=== PATIENT | male | born 1980 ===

== ENCOUNTER 2022-08-23 18:27 | Inpatient (IN) | payer OTHER ==
[2022-08-23 20:24] VITALS: BMI 25.9
[2022-08-23] MEDS ORDERED: P-EPHED 60MG/TRIPROLIDI 2.5MG TABLET PO PRN (22:56)
[2022-08-23] MEDS ORDERED: ACETAMINOPHEN 325 MG TABLET (FP) PO PRN (22:56)
[2022-08-23] MEDS ORDERED: MAG HYDROX/AL HYDROX/SIMETH 30 ML UNIT-DOSE CUP PO PRN (22:56)
[2022-08-23] MEDS ORDERED: DICYCLOMINE HCL 10 MG CAPSULE PO PRN (22:56)
[2022-08-23] MEDS ORDERED: BENZOCAINE/MENTHOL (CHLORASEPTIC ) LOZENGE MM PRN (22:56)
[2022-08-23] MEDS ORDERED: BENZONATATE 200 MG CAPSULE PO PRN (22:56)
[2022-08-23] MEDS ORDERED: IBUPROFEN 400 MG TABLET (FP) PO PRN (22:56)
[2022-08-23] MEDS ORDERED: NICOTINE 10 MG CARTRIDGE (INHALER) IH PRN (22:56)
[2022-08-23] MEDS ORDERED: ONDANSETRON *ODT* 4 MG TABLET SL PRN (22:56)
[2022-08-23] MEDS ORDERED: BISMUTH SUBSALICYLATE 524 MG/30 ML PO PRN (22:56)
[2022-08-23] MEDS ORDERED: MAGNESIUM HYDROX 2400MG/30ML ORAL SUSPENSION 30 ML CUP PO PRN (22:56)
[2022-08-23] MEDS ORDERED: POLYETHYLENE GLYCOL (HEALTHYLAX) 3350 17 GM PACKET PO PRN (22:56)
[2022-08-23] MEDS ORDERED: guaiFENesin 600 MG TABLET.ER (FP) PO PRN (22:56)
[2022-08-23] MEDS ORDERED: LOPERAMIDE HCL 2 MG CAPSULE PO PRN (22:56)
[2022-08-23] MEDS ORDERED: NICOTINE POLACRILEX 2 MG GUM BUC PRN (22:56)
[2022-08-23] MEDS ORDERED: IBUPROFEN 600 MG TABLET (FP) PO PRN (22:56)
[2022-08-24] MEDS: METHOCARBAMOL 500 MG TABLET PO PRN ×2 (00:34→22:36)
[2022-08-24] MEDS: hydrOXYzine PAMOATE 25 MG CAPSULE (FP) PO PRN ×2 (00:35→22:36)
[2022-08-24] MEDS: MELATONIN 5 MG TABLETS PO PRN ×2 (00:37→22:36)
[2022-08-24] MEDS ORDERED: diazePAM 5 MG TABLET PO PRN (09:59)
[2022-08-24] MEDS: PRENATAL VITAMINS W/ FOLIC ACID TABLET (FP) PO SCH (10:34)
[2022-08-24] MEDS: diazePAM 5 MG TABLET PO SCH ×3 (10:35→22:37)
[2022-08-24 11:32] LABS: POTASSIUM 4.1 mmol/L (3.5-5.1)
[2022-08-24 11:35] LABS: HEMATOCRIT 43.5 % (35.4-49); MCH 28.5 pg (25.7-33.7); MCHC 34.4 g/dl (32.0-35.9); MEAN CELL VOLUME 82.8 fl (80-96); MEAN PLT VOLUME 10.1 fl (7.5-11.1); PLATELET COUNT 210 10^3/uL (134-434); RBC 5.26 M/mm3 (4.00-5.60); RDW 14.4 % (11.9-15.9)
[2022-08-24 11:38] LABS: CALCIUM 8.7 mg/dL (8.5-10.1)
[2022-08-24 11:39] LABS: ALBUMIN 3.4 g/dl (3.4-5.0); BLOOD UREA NITROGEN 18.1 mg/dL (7-18)
[2022-08-24 11:42] LABS: CREATININE 0.9 mg/dL (0.55-1.3)
[2022-08-24 11:44] LABS: BILIRUBIN,TOTAL 0.8 mg/dL (0.2-1); TOT PROT 6.3 g/dl (6.4-8.2)
[2022-08-24] MEDS: THIAMINE HCL 100 MG TABLET (FP) PO SCH (22:36)
[2022-08-25] MEDS: diazePAM 5 MG TABLET PO SCH ×4 (06:11→22:51)
[2022-08-25] MEDS: PRENATAL VITAMINS W/ FOLIC ACID TABLET (FP) PO SCH (10:25)
[2022-08-25] MEDS: ARIPiprazole 10 MG TABLET PO SCH (10:26)
[2022-08-25] MEDS: THIAMINE HCL 100 MG TABLET (FP) PO SCH (22:51)
[2022-08-25] MEDS: METHOCARBAMOL 500 MG TABLET PO PRN (22:51)
[2022-08-25] MEDS: MELATONIN 5 MG TABLETS PO PRN (22:51)
[2022-08-25] MEDS: hydrOXYzine PAMOATE 25 MG CAPSULE (FP) PO PRN (22:51)
[2022-08-26] MEDS: diazePAM 5 MG TABLET PO SCH ×3 (05:53→22:14)
[2022-08-26] MEDS: ARIPiprazole 10 MG TABLET PO SCH (10:35)
[2022-08-26] MEDS: PRENATAL VITAMINS W/ FOLIC ACID TABLET (FP) PO SCH (10:35)
[2022-08-26] MEDS: MELATONIN 5 MG TABLETS PO PRN (22:13)
[2022-08-26] MEDS: hydrOXYzine PAMOATE 25 MG CAPSULE (FP) PO PRN (22:13)
[2022-08-26] MEDS: THIAMINE HCL 100 MG TABLET (FP) PO SCH (22:14)
[2022-08-26] MEDS: METHOCARBAMOL 500 MG TABLET PO PRN (22:14)
[2022-08-27] MEDS ORDERED: diazePAM 5 MG TABLET PO SCH (06:00)
[2022-08-27 09:50] VITALS: BP 123/76; PULSE 64; RESP 16; TEMP 98
[2022-08-27] MEDS: PRENATAL VITAMINS W/ FOLIC ACID TABLET (FP) PO SCH (10:14)
[2022-08-27] MEDS: ARIPiprazole 10 MG TABLET PO SCH (10:15)
[2022-08-28] MEDS ORDERED: diazePAM 5 MG TABLET PO ONE (06:00)
== END 2022-08-27 11:46 | disposition home or self-care (01) | DRG 774 ==
LOC: YASAS 18:27 → Y3N 23:44
PROVIDERS: ADMIT Allergy & Immunology; ATTEND Surgery
PROC: HZ2ZZZZ Detoxification Services for Substance Abuse Treatment (ICD-10-PCS; principal; 2022-08-23)
DX: F10.230 Alcohol dependence with withdrawal, uncomplicated (principal); F14.20 Cocaine dependence, uncomplicated; F10.10 Alcohol abuse, uncomplicated; F12.20 Cannabis dependence, uncomplicated; F17.210 Nicotine dependence, cigarettes, uncomplicated; Z86.59 Personal history of other mental and behavioral disorders; Z91.199 Patient's noncompliance with other medical treatment and regimen due to unspecified reason
CPT/HCPCS: 36415; 80053; 85027; 86780; 87811; C9803-CS; U0003; U0005

== ENCOUNTER 2022-09-29 09:35 | Inpatient (IN) | payer OTHER ==
[2022-09-29 09:59] VITALS: BMI 28.6
[2022-09-29] MEDS ORDERED: MAG HYDROX/AL HYDROX/SIMETH 30 ML UNIT-DOSE CUP PO PRN (10:44)
[2022-09-29] MEDS ORDERED: COLLOIDAL OATMEAL 1 BAR EACH TP PRN (10:44)
[2022-09-29] MEDS ORDERED: NICOTINE 10 MG CARTRIDGE (INHALER) IH PRN (10:44)
[2022-09-29] MEDS ORDERED: IBUPROFEN 600 MG TABLET (FP) PO PRN (10:44)
[2022-09-29] MEDS ORDERED: IBUPROFEN 400 MG TABLET (FP) PO PRN (10:44)
[2022-09-29] MEDS ORDERED: NICOTINE POLACRILEX 2 MG GUM BUC PRN (10:44)
[2022-09-29] MEDS ORDERED: NALOXONE HCL 0.4 MG/ML VIAL IM PRN (10:44)
[2022-09-29] MEDS ORDERED: hydrOXYzine PAMOATE 25 MG CAPSULE (FP) PO PRN (10:44)
[2022-09-29] MEDS ORDERED: BENZONATATE 200 MG CAPSULE PO PRN (10:44)
[2022-09-29] MEDS ORDERED: NALOXONE HCL (KLOXXADO) 8 MG SPRAY NS PRN (10:44)
[2022-09-29] MEDS ORDERED: POLYETHYLENE GLYCOL (HEALTHYLAX) 3350 17 GM PACKET PO PRN (10:44)
[2022-09-29] MEDS ORDERED: AMMONIUM LACTATE 12% LOTION 225 GM BOTTLE TP PRN (10:44)
[2022-09-29] MEDS ORDERED: ACETAMINOPHEN 325 MG TABLET (FP) PO PRN (10:44)
[2022-09-29] MEDS ORDERED: LOPERAMIDE HCL 2 MG CAPSULE PO PRN (10:44)
[2022-09-29] MEDS ORDERED: MAGNESIUM HYDROX 2400MG/30ML ORAL SUSPENSION 30 ML CUP PO PRN (10:44)
[2022-09-29] MEDS ORDERED: guaiFENesin 600 MG TABLET.ER (FP) PO PRN (10:44)
[2022-09-29] MEDS ORDERED: BENZOCAINE/MENTHOL (CHLORASEPTIC ) LOZENGE MM PRN (10:44)
[2022-09-29] MEDS: NICOTINE 14 MG/24 HOURS TOPICAL PATCH TD SCH (11:45)
[2022-09-29 14:05] LABS: HEMATOCRIT 41.6 % (35.4-49); HEMOGLOBIN 13.9 GM/dL (11.7-16.9); MCH 27.7 pg (25.7-33.7); MCHC 33.5 g/dl (32.0-35.9); MEAN CELL VOLUME 82.8 fl (80-96); MEAN PLT VOLUME 10.1 fl (7.5-11.1); PLATELET COUNT 203 10^3/uL (134-434); RBC 5.03 M/mm3 (4.00-5.60); RDW 14.4 % (11.9-15.9)
[2022-09-29] MEDS: ARIPiprazole 10 MG TABLET PO SCH (15:23)
[2022-09-29 15:25] LABS: POTASSIUM 4.7 mmol/L (3.5-5.1)
[2022-09-29 15:42] LABS: ALBUMIN 3.8 g/dl (3.4-5.0); BLOOD UREA NITROGEN 18.6 mg/dL (7-18); CALCIUM 9.2 mg/dL (8.5-10.1)
[2022-09-29 15:45] LABS: CREATININE 0.8 mg/dL (0.55-1.3)
[2022-09-29 15:47] LABS: BILIRUBIN,TOTAL 0.6 mg/dL (0.2-1); TOT PROT 6.8 g/dl (6.4-8.2)
[2022-09-29 16:32] LABS: SYPHILIS W/ RPR CONF NON-REACTIVE (NONREACTIVE)
[2022-09-29] MEDS: THIAMINE HCL 100 MG TABLET (FP) PO SCH (21:20)
[2022-09-29] MEDS: MELATONIN 5 MG TABLETS PO SCH (21:20)
[2022-09-30] MEDS: NICOTINE 14 MG/24 HOURS TOPICAL PATCH TD SCH (10:30)
[2022-09-30] MEDS: PRENATAL VITAMINS W/ FOLIC ACID TABLET (FP) PO SCH (10:30)
[2022-09-30] MEDS: ARIPiprazole 10 MG TABLET PO SCH (10:30)
[2022-09-30 11:32] LABS: PH,URINE 6.5 (5.0-8.0); URINE APPEARANCE CLEAR; URINE BILIRUBIN NEGATIVE (NEGATIVE); URINE COLOR YELLOW; URINE GLUCOSE (UA) NEGATIVE (NEGATIVE); URINE KETONE NEGATIVE (NEGATIVE); URINE LEUK ESTERASE NEGATIVE (NEGATIVE); URINE NITRITE NEGATIVE (NEGATIVE); URINE PROTEIN NEGATIVE (NEGATIVE)
[2022-09-30] MEDS: MELATONIN 5 MG TABLETS PO SCH (21:29)
[2022-09-30] MEDS: THIAMINE HCL 100 MG TABLET (FP) PO SCH (21:29)
[2022-10-01] MEDS: PRENATAL VITAMINS W/ FOLIC ACID TABLET (FP) PO SCH (09:42)
[2022-10-01] MEDS: ARIPiprazole 10 MG TABLET PO SCH (09:42)
[2022-10-01] MEDS: NICOTINE 14 MG/24 HOURS TOPICAL PATCH TD SCH (09:43)
[2022-10-01] MEDS ORDERED: ARIPiprazole 15 MG TABLET PO ONE (14:49)
[2022-10-01] MEDS: MELATONIN 5 MG TABLETS PO SCH (21:33)
[2022-10-01] MEDS: THIAMINE HCL 100 MG TABLET (FP) PO SCH (21:34)
[2022-10-02] MEDS: NICOTINE 14 MG/24 HOURS TOPICAL PATCH TD SCH (09:56)
[2022-10-02] MEDS: PRENATAL VITAMINS W/ FOLIC ACID TABLET (FP) PO SCH (09:56)
[2022-10-02] MEDS: ARIPIPRAZOLE PO SCH (09:56)
[2022-10-02] MEDS ORDERED: ARIPiprazole 20 MG TABLET PO SCH (10:00)
[2022-10-02] MEDS: MELATONIN 5 MG TABLETS PO SCH (21:09)
[2022-10-02] MEDS: THIAMINE HCL 100 MG TABLET (FP) PO SCH (21:09)
[2022-10-03] MEDS: PRENATAL VITAMINS W/ FOLIC ACID TABLET (FP) PO SCH (10:11)
[2022-10-03] MEDS: NICOTINE 14 MG/24 HOURS TOPICAL PATCH TD SCH (10:11)
[2022-10-03] MEDS: ARIPIPRAZOLE PO SCH (10:11)
[2022-10-03] MEDS: MELATONIN 5 MG TABLETS PO SCH (21:14)
[2022-10-03] MEDS: THIAMINE HCL 100 MG TABLET (FP) PO SCH (21:14)
[2022-10-04 07:01] VITALS: RESP 18
[2022-10-04] MEDS: ARIPIPRAZOLE PO SCH (09:42)
[2022-10-04] MEDS: NICOTINE 14 MG/24 HOURS TOPICAL PATCH TD SCH (09:42)
[2022-10-04] MEDS: PRENATAL VITAMINS W/ FOLIC ACID TABLET (FP) PO SCH (09:42)
[2022-10-04] MEDS: THIAMINE HCL 100 MG TABLET (FP) PO SCH (21:26)
[2022-10-04] MEDS: MELATONIN 5 MG TABLETS PO SCH (21:26)
[2022-10-05] MEDS: NICOTINE 14 MG/24 HOURS TOPICAL PATCH TD SCH (10:04)
[2022-10-05] MEDS: PRENATAL VITAMINS W/ FOLIC ACID TABLET (FP) PO SCH (10:05)
[2022-10-05] MEDS: ARIPIPRAZOLE PO SCH (10:05)
[2022-10-05] MEDS: MELATONIN 5 MG TABLETS PO SCH (21:55)
[2022-10-05] MEDS: THIAMINE HCL 100 MG TABLET (FP) PO SCH (21:55)
[2022-10-06] MEDS: PRENATAL VITAMINS W/ FOLIC ACID TABLET (FP) PO SCH (09:50)
[2022-10-06] MEDS: ARIPIPRAZOLE PO SCH (09:50)
[2022-10-06] MEDS: NICOTINE 14 MG/24 HOURS TOPICAL PATCH TD SCH (09:50)
[2022-10-06] MEDS: MELATONIN 5 MG TABLETS PO SCH (21:17)
[2022-10-06] MEDS: THIAMINE HCL 100 MG TABLET (FP) PO SCH (21:17)
[2022-10-07 06:47] VITALS: BP 108/71; PULSE 81; TEMP 97.7
[2022-10-07] MEDS: NICOTINE 14 MG/24 HOURS TOPICAL PATCH TD SCH (10:01)
[2022-10-07] MEDS: ARIPIPRAZOLE PO SCH (10:01)
[2022-10-07] MEDS: PRENATAL VITAMINS W/ FOLIC ACID TABLET (FP) PO SCH (10:01)
== END 2022-10-07 13:22 | disposition home or self-care (01) | DRG 772 ==
LOC: YASAS 09:35 → Y3W 11:01
PROVIDERS: ADMIT Allergy & Immunology; ATTEND Psychiatry & Neurology Pain Medicine
PROC: HZ42ZZZ Group Counseling for Substance Abuse Treatment, Cognitive-Behavioral (ICD-10-PCS; principal; 2022-09-29)
DX: F14.20 Cocaine dependence, uncomplicated (principal); F11.20 Opioid dependence, uncomplicated; F12.20 Cannabis dependence, uncomplicated; F17.210 Nicotine dependence, cigarettes, uncomplicated; F41.8 Other specified anxiety disorders; G47.00 Insomnia, unspecified; Z86.59 Personal history of other mental and behavioral disorders; Z91.199 Patient's noncompliance with other medical treatment and regimen due to unspecified reason
CPT/HCPCS: 36415; 80053; 81003; 85027; 86780; 86803; 87811; C9803-CS; U0003; U0005